=== PATIENT | male | born 1970 | race American Indian/Alaskan Native ===

== ENCOUNTER 2020-09-27 08:45 | Inpatient (IN) | payer SELFPAY ==
[2020-09-27] MEDS ORDERED: ONDANSETRON 4 MG/2 ML INJ IV SCH ×2 (09:00)
[2020-09-27] MEDS ORDERED: MORPHINE 4 MG/1 ML INJ IV SCH (09:30)
[2020-09-27] MEDS ORDERED: ASPIRIN 81 MG TAB CHEW PO SCH (09:30)
[2020-09-27] MEDS ORDERED: MORPHINE 4 MG/1 ML INJ ONE (09:42)
--- NOTE | 2020-09-27 09:48 | Emergency Department Report ---
ED Chest Pain HPI - General Chief Complaint: Chest Pain Stated Complaint: CP Time Seen by Provider: 09/27/20 09:36 Source: patient Mode of arrival: Ambulatory Limitations: No Limitations - History of Present Illness Initial Comments: Patient is 50 years old male with history of hypertension, noncompliant with his medication. Patient brought to the emergency room via EMS from home for evaluation of a sudden onset of left sided chest pain, heaviness in nature with no radiation. Patient rated his pain as 10 out of 10. Patient found to have a blood pressure of 222/131. Patient given nitroglycerin by EMS with improvement in his blood pressure to 193/123. Patient denied any shortness of breath, cough or fever. MD Complaint: chest pain -: Sudden, This morning Onset: during rest Pain Location: substernal Pain Radiation: none Severity: severe Severity scale (0 -10): 10 Quality: heaviness, pressure Consistency: constant - Related Data Allergies Allergy/AdvReac Type Severity Reaction Status Date / Time No Known Allergies Allergy Unverified 09/27/20 10:00 Heart Score - HEART Score History: Moderately suspicious EKG: Non-specific Age: 45-65 Risk factors: 1-2 risk factors Troponin: > 3x normal limit HEART Score: 6 - EKG Read Time Time EKG Completed: 09:39 EKG Read Time: 09:39 - Critical Actions Critical Actions: 4-6 pts:12-16.6% risk of adverse cardiac event. Should be adm itted ED Review of Systems ROS: Stated complaint: CP Other details as noted in HPI Comment: All other systems reviewed and negative Constitutional: denies: chills, fever Respiratory: denies: cough, shortness of breath, SOB with exertion Cardiovascular: chest pain. denies: palpitations Gastrointestinal: denies: abdominal pain, nausea, vomiting, diarrhea Musculoskeletal: denies: back pain Neurological: denies: headache, weakness, numbness, paresthesias, confusion, abnormal gait Psychiatric: anxiety ED Past Medical Hx - Past Medical History Previous Medical History?: Yes Hx Hypertension: Yes ED Physical Exam - General Limitations: No Limitations General appearance: alert, in distress - Head Head exam: Present: atraumatic, normocephalic, normal inspection - Eye Eye exam: Present: normal appearance, PERRL - ENT ENT exam: Present: normal exam, normal orophraynx, mucous membranes moist - Neck Neck exam: Present: normal inspection, full ROM. Absent: tenderness, meningismus - Respiratory Respiratory exam: Present: normal lung sounds bilaterally - Cardiovascular Cardiovascular Exam: Present: regular rate, normal rhythm, normal heart sounds - GI/Abdominal GI/Abdominal exam: Present: soft, normal bowel sounds. Absent: distended, tenderness, guarding, rebound, rigid, mass, bruit, pulsatile mass - Extremities Exam Extremities exam: Present: normal inspection, full ROM, normal capillary refill. Absent: tenderness, pedal edema, joint swelling, calf tenderness - Back Exam Back exam: Present: normal inspection, full ROM. Absent: CVA tenderness (R), CVA tenderness (L) - Neurological Exam Neurological exam: Present: alert, oriented X3, CN II-XII intact, normal gait, reflexes normal. Absent: motor sensory deficit - Psychiatric Psychiatric exam: Present: normal mood, anxious. Absent: suicidal ideation - Skin Skin exam: Present: warm, intact, normal color ED Course Vital Signs 09/27/20 09/27/20 09:00 10:01 Pulse Rate 98 H 92 H Respiratory 22 18 Rate Blood Pressure 164/100 O2 Sat by Pulse 97 98 Oximetry - Consultations Consultation #1: 09/27/20 13:56 I discussed the patient with LEANDRA Cramer with [facility]. He stated that he is coming down to evaluate the patient. ED Medical Decision Making - Lab Data Result diagrams: 09/27/20 09:42 09/27/20 09:42 - EKG Data -: EKG Interpreted by [place] EKG shows normal: sinus rhythm Rate: normal - EKG Data Interpretation: no acute changes - Radiology Data Radiology results: report reviewed - Medical Decision Making Patient is 50 years old male with history of hypertension, noncompliant with his medication. Patient brought to the emergency room via EMS from home for evaluat ion of a sudden onset of left sided chest pain, heaviness in nature with no radiation. Patient rated his pain as 10 out of 10. Patient found to have a blood pressure of 222/131. Patient given nitroglycerin by EMS with improvement in his blood pressure to 193/123. Patient denied any shortness of breath, cough or fever. Patient received morphine, Ativan for pain and labetalol for his blood pressure. This is before the cocaine labs resulted. Given the significantly elevated blood pressure with the chest pain I proceeded with ruling out aortic dissection. CTA chest and CTA abdomen and pelvis came back negative for dissection or any other acute abnormalities. Patient labs reviewed and showed elevated troponin on the first draw and increased to 0.1 on the second draw. Patient given aspirin also. I discussed the patient with Dr. Kedar Cramer PA. He came and evaluated the patient in the ER and recommended patient to be admitted to the hospital for further management. I discussed the patient with Dr. Hightower, he agreed to admit the patient to medical service for further management. Critical Care Time: Yes Critical care time in (mins) excluding proc time.: 30 Critical care attestation.: If time is entered above; I have spent that time in minutes in the direct care of this critically ill patient, excluding procedure time. ED Disposition Clinical Impression: Acute chest pain, Non-STEMI (non-ST elevated myocardial infarction), Hypertensive emergency Disposition: 09 ADMITTED INPATIENT Is pt being admited?: Yes Condition: Stable Instructions: Chest Pain (ED), Hypertension (ED) Referrals: PRIMARY CARE, [Primary Care Provider] - 3-5 Days
[2020-09-27] MEDS ORDERED: SODIUM CHLORIDE 0.9% 1000 ML 1,000 ML IV ONE (10:00)
[2020-09-27 10:14] LABS: Basophils % (Auto) 0.5 % (0.0-1.8); Hematocrit 45.4 % (35.5-45.6); Hemoglobin 15.6 gm/dl (11.8-15.2); Lymphocytes # (Auto) 0.8 K/mm3 (1.2-5.4); Lymphocytes % (Auto) 8.2 % (13.4-35.0); Mean Corpuscular HGB Conc 34 % (32-34); Mean Corpuscular Volume 90 fl (84-94); Monocytes # (Auto) 0.3 K/mm3 (0.0-0.8); Monocytes % (Auto) 3.4 % (0.0-7.3); Platelet Count 174 K/mm3 (140-440); Red Blood Count 5.05 M/mm3 (3.65-5.03)
--- NOTE | 2020-09-27 10:21 | XRay Report ---
CHEST 1 VIEW 09/27/2020 10:01 AM INDICATION / CLINICAL INFORMATION: Chest Pain. COMPARISON: None available. FINDINGS: SUPPORT DEVICES: None. HEART / MEDIASTINUM: No significant abnormality. LUNGS / PLEURA: No significant pulmonary or pleural abnormality. No pneumothorax. ADDITIONAL FINDINGS: No significant additional findings. IMPRESSION: 1. No acute findings. Signer Name: Michael Dash MD Signed: 09/27/2020 10:17 AM Workstation Name: [id number]
[2020-09-27 10:26] LABS: BUN/Creatinine Ratio 13; Blood Urea Nitrogen 10 mg/dL (9-20); Calcium 9.1 mg/dL (8.4-10.2); Hemolysis Index 16
[2020-09-27 10:28] LABS: Alanine Aminotransferase 16 units/L (7-56); Albumin 4.7 g/dL (3.9-5)
[2020-09-27 10:36] LABS: Bilirubin,Direct < 0.2 mg/dL (0-0.2)
[2020-09-27 11:29] LABS: Amphetamine Screen,Urine PRESUMPTIVE NEGATIVE; Benzodiazepines Screen,Urine PRESUMPTIVE NEGATIVE; Cannabinoid Screen,Urine PRESUMPTIVE POSITIVE; Cocaine Screen,Urine PRESUMPTIVE POSITIVE; Methadone Screen,Urine PRESUMPTIVE NEGATIVE; Opiate Screen,Urine PRESUMPTIVE NEGATIVE
[2020-09-27 11:33] LABS: Bilirubin,Urine NEG (Negative); Blood,Urine MOD (Negative); Color,Urine Straw (Yellow); Mucus,Urine FEW /HPF; Urobilinogen,Urine < 2.0 mg/dL (<2.0)
[2020-09-27 12:08] LABS: INR 0.95 (0.87-1.13)
[2020-09-27 12:11] LABS: Partial Thromboplastin Time 21.2 Sec. (24.2-36.6)
[2020-09-27] MEDS ORDERED: LORazepam 2 MG/ML VIAL IV ONE ×3 (12:36→13:15)
--- NOTE | 2020-09-27 15:02 | Cat Scan Report ---
CTA CHEST WITH CONTRAST INDICATION : Acute chest pain, elevated blood pressure, OMNI 350 100 ML. TECHNIQUE: Axial imaging performed through the chest, with contrast bolus timing set to maximize opa cification of the pulmonary arteries. Sagittal and coronal reformatted images. 3-plane MIP reformatte d images were obtained. All CT scans at this location are performed using CT dose reduction for ALAR A by means of automated exposure control. 100 mL of intravenous contrast administered. COMPARISON: FINDINGS: Bolus: Contrast bolus timing is adequate. PTE: No filling defect is present to suggest PTE. Aorta: No significant abnormality. Mediastinum: Heart and great vessels appear normal. No pathologic mediastinal adenopathy. Lungs: Lungs are clear. Bones: Degenerative changes in the spine with nothing acute. IMPRESSION: Negative for PTE. Clear lungs. CTA ABDOMEN AND PELVIS WITH IV CONTRAST INDICATION / CLINICAL INFORMATION: Acute chest pain, elevated blood pressure, OMNI 350 100 ML. TECHNIQUE: Axial CT images were obtained through the abdomen and pelvis before and after injection of 100 cc Omn ipaque 350 IV contrast. 3 plane MIP / 3D reconstructions were produced. All CT scans at this location are performed using CT dose reduction for ALARA by means of automated exposure control. COMPARISON: None available. FINDINGS: Aorta: No significant abnormality. Renal arteries: No significant abnormality. Celiac artery: No significant abnormality. Superior Mesenteric Artery: No significant abnormality. Inferior mesenteric artery: No significant abnormality. Right Iliac Arteries: No significant abnormality.. Left Iliac Arteries: No significant abnormality.. Additional Findings: None. Skeletal Structures: No significant abnormality. IMPRESSION: No significant abnormality. Signer Name: Stan Mac Jr, MD Signed: 09/27/2020 2:57 PM Workstation Name: [id number]
[2020-09-27] MEDS ORDERED: NITROGLYCERIN 0.4 MG TAB SUBL SL PRN (16:00)
[2020-09-27 16:17] LABS: HDL Cholesterol 59 mg/dL (40-59); LDL Cholesterol,Direct 147 mg/dL (50-130)
--- NOTE | 2020-09-27 16:36 | History and Physical Report ---
History of Present Illness Chief complaint: My chest hurts History of present illness: 50 YO Male with HTN, Medication Noncompliance, Cocaine Dependence, Obesity Hypoventilation Syndrome presents to ED for evaluation. Patient reports "I have pain in my chest". Patient states that he has experienced a sudden onset of chest pain today. Patient states that pain is 10/10, constant, crushing in nature, localized to the left chest, nonradiating, relieved with nitro, worsened with exertion, relieved with rest. EMS was notified and upon arrival the patient was found to be in distress and subsequent transported to [facility] for further care and evaluation of the aforementioned symptoms. The patient was seen and evaluated in the emergency department. All lab and imaging studies reviewed. Patient found to have angina at rest, hypertensive emergency, as well as Type II NSTEMI. Cardiology team consulted. Patient denies fever, chills, palpitations, productive cough, skin rash, recent ill contact, or known exposure to COVID-19. No prior admission for review. No medication listed at time of admission reconciliation. Past History Past Medical History: hypertension, other (See HPI) Past Surgical History: No surgical history, Other (See HPI) Social history: , lives with family. denies: smoking Family history: diabetes, hypertension Medications and Allergies Allergies Allergy/AdvReac Type Severity Reaction Status Date / Time No Known Allergies Allergy Unverified 09/27/20 10:00 Active Meds: Active Medications Amlodipine Besylate (Amlodipine 5 Mg Tab) 10 mg PO DAILY [facility] Aspirin (Aspirin 81 Mg Tab Chew) 81 mg PO DAILY [facility] Heparin Sodium (Porcine) (Heparin 10,000 Units/10 Ml Vial) 4,800 unit 40 unit/kg (4800 unit) IV Q6H PRN PRN Reason: Anti-Xa Assay < 0.1 units/ml Heparin Sodium/Sodium Chloride (Heparin/ 0.45% Nacl-25,000 Unit/500 Ml) 25,000 unit in 500 mls @ 20 mls/hr IV TITRATE ROS[facility]; Protocol Stop: 09/29/20 15:59 Labetalol HCl (Labetalol 20 Mg/4 Ml Inj) 10 mg IV Q2H PRN PRN Reason: Hypertension Nitroglycerin (Nitroglycerin 0.4 Mg Tab Subl) 0.4 mg SL .Q5MIN PRN PRN Reason: Chest Pain Review of Systems Constitutional: no weight loss, no weight gain, no chills Ears, nose, mouth and throat: no ear pain, no tinnitis, no decreased hearing, no nose pain, no nasal congestion, no nasal discharge Cardiovascular: chest pain, high blood pressure, no lightheadedness Respiratory: no cough, no cough with sputum, no excessive sputum Gastrointestinal: no abdominal pain, no nausea, no vomiting, no diarrhea, no constipation Genitourinary Male: no hematuria, no flank pain, no urinary frequency, no urinary hesitancy Rectal: no pain, no incontinence, no bleeding Musculoskeletal: no neck stiffness, no neck pain, no shooting arm pain, no arm numbness/tingling Integumentary: no rash, no pruritis, no redness, no sores, no wounds, no jaundice Neurological: no transient paralysis, no paralysis, no weakness, no parathesias, no numbness, no tingling Psychiatric: no anxiety, no memory loss, no change in sleep habits, no insomnia, no hypersomnia, no disorientation Endocrine: no cold intolerance, no heat intolerance, no polyphagia, no polydipsia, no polyuria, no nocturia, no excessive sweating, no weight change Hematologic/Lymphatic: no easy bruising, no easy bleeding Allergic/Immunologic: no urticaria, no allergic rhinitis Exam - Constitutional Vitals: Temp Pulse Resp BP Pulse Ox 92 H 18 164/100 98 09/27/20 10:01 09/27/20 10:01 09/27/20 09:00 09/27/20 10:01 General appearance: Present: mild distress, obese - EENT Eyes: Present: PERRL ENT: hearing intact, clear oral mucosa - Neck Neck: Present: supple, normal ROM - Respiratory Respiratory effort: normal Respiratory: bilateral: CTA - Cardiovascular Heart Sounds: Present: S1 & S2. Absent: rub, click - Extremities Extremities: pulses symmetrical, No edema Peripheral Pulses: within normal limits - Abdominal General gastrointestinal: Present: soft, non-tender, non-distended, normal bowel sounds Male genitourinary: Present: normal - Integumentary Integumentary: Present: clear, warm, dry - Musculoskeletal Musculoskeletal: gait normal, strength equal bilaterally - Psychiatric Psychiatric: appropriate mood/affect, intact judgment & insight - Neurologic Neurologic: CNII-XII intact, moves all extremities HEART Score - HEART Score EKG: Non-specific Age: 45-65 Risk factors: 1-2 risk factors Troponin: Troponin T 0.102 ng/mL (0.00-0.029) H* D 09/27/20 12:42 Troponin: > 3x normal limit - Critical Actions Critical Actions: 4-6 pts:12-16.6% risk of adverse cardiac event. Should be admitted Results - Labs CBC & Chem 7: 09/27/20 16:18 09/27/20 09:42 Labs: Abnormal lab results 09/27/20 09/27/20 09/27/20 Range/Units 09:42 09:42 09:42 RBC 5.05 H (3.65-5.03) M/mm3 Hgb 15.6 H (11.8-15.2) gm/dl Lymph % (Auto) 8.2 L (13.4-35.0) % Lymph # (Auto) 0.8 L (1.2-5.4) K/mm3 Seg Neutrophils % 87.9 H (40.0-70.0) % Seg Neutrophils # 8.5 H (1.8-7.7) K/mm3 APTT 21.2 L (24.2-36.6) Sec. Potassium 3.0 L (3.6-5.0) mmol/L Glucose 112 H (75-100) mg/dL Troponin T 0.037 H (0.00-0.029) ng/mL Cholesterol 207 H (50-199) mg/dL LDL Cholesterol Direct 147 H (50-130) mg/dL Urine pH (5.0-7.0) 09/27/20 09/27/20 Range/Units 12:42 Unknown RBC (3.65-5.03) M/mm3 Hgb (11.8-15.2) gm/dl Lymph % (Auto) (13.4-35.0) % Lymph # (Auto) (1.2-5.4) K/mm3 Seg Neutrophils % (40.0-70.0) % Seg Neutrophils # (1.8-7.7) K/mm3 APTT (24.2-36.6) Sec. Potassium (3.6-5.0) mmol/L Glucose (75-100) mg/dL Troponin T 0.102 H* D (0.00-0.029) ng/mL Cholesterol (50-199) mg/dL LDL Cholesterol Direct (50-130) mg/dL Urine pH 8.0 H (5.0-7.0) Assessment and Plan - Patient Problems (1) Non-STEMI (non-ST elevated myocardial infarction) Current Visit: Yes Status: Acute Plan to address problem: Serial cardiac enzymes, EKG, cardiology team consulted, further care as per car diology team, echocardiogram in a.m., stress test in a.m. (2) Angina at rest Current Visit: Yes Status: Acute Plan to address problem: Serial cardiac enzymes, EKG, telemetry, supplemental oxygen, morphine, nitro, aspirin, cardiology team consulted. Echocardiogram in a.m., stress test in a.m. (3) Obesity hypoventilation syndrome Current Visit: Yes Status: Acute Plan to address problem: Balanced diet, increase physical activity at discharge, outpatient pulmonary follow-up for sleep study. (4) Cocaine use Current Visit: Yes Status: Acute Plan to address problem: Outpatient drug dependence follow-up, supportive care. Blood pressure control. (5) Hypertensive emergency Current Visit: Yes Status: Acute Plan to address problem: Monitor blood pressure every shift, IV hydralazine every 6 hours as needed for systolic blood pressure greater than equal to 155 mmHg (6) DVT prophylaxis Current Visit: Yes Status: Acute Plan to address problem: SCD to bilateral lower extremities while in bed, patient is ambulatory
[2020-09-27 16:37] LABS: Hematocrit 44.7 % (35.5-45.6); Hemoglobin 15.4 gm/dl (11.8-15.2)
[2020-09-27 16:55] LABS: INR 0.91 (0.87-1.13); Partial Thromboplastin Time 24.8 Sec. (24.2-36.6)
[2020-09-27] MEDS: amLODIPine 5 MG TAB PO SCH (17:20)
[2020-09-27] MEDS: HEPARIN 10,000 UNITS/10 ML VIAL IV PRN (17:21)
[2020-09-27] MEDS: HEPARIN/ 0.45% NACL DRIP 25,000 UNIT/500 ML BAG IV SCH (17:23)
[2020-09-27] MEDS ORDERED: oxyCODONE /ACETAMINOPHEN 5-325MG TAB PO PRN (17:30)
[2020-09-27] MEDS ORDERED: ALBUTEROL 2.5 MG/3 ML NEBU IH PRN (17:30)
[2020-09-27] MEDS ORDERED: ONDANSETRON 4 MG/2 ML INJ IV PRN (17:30)
[2020-09-27] MEDS: HYDROmorphone 1 MG/1 ML INJ IV PRN (17:42)
--- NOTE | 2020-09-27 18:37 | Consultation ---
History of Present Illness Consult date: 09/27/20 Requesting physician: CLIFFORD MCCLOUD Consult reason: chest pain, other (NSTEMI) History of present illness: Patient is a 50 y/o male with pmhx of HTN who came to the ED for chest pain. At time of interview patient was lethargic due to recently receiving Ativan in the ED. The patient reports that last night he was partying, drank alcohol, and did cocaine. He reports that this morning he woke up with a crushing chest pain on the left side of his chest that he rated as 10/10. He reports that he had nausea and vomiting but denies SOB, cough, fever or diaphoresis. Patient was found by EMSto have a BP of 222/131 which dropped to 193/123 after being given nitroglycerin. In the ED patient was found to have troponins 0.03->0.1. Cardiology consulted for NSTEMI. Past History Past Medical History: hypertension Past Surgical History: No surgical history Social history: other (cocaine, marijauna use) Family history: no significant family history Medications and Allergies Allergies Allergy/AdvReac Type Severity Reaction Status Date / Time No Known Allergies Allergy Unverified 09/27/20 10:00 Active Meds: Active Medications Acetaminophen (Acetaminophen 325 Mg Tab) 650 mg PO Q4H PRN PRN Reason: Pain MILD(1-3)/Fever >100.5/CURRAN Albuterol (Albuterol 2.5 Mg/3 Ml Nebu) 2.5 mg IH Q4HRT PRN PRN Reason: Shortness Of Breath Amlodipine Besylate (Amlodipine 5 Mg Tab) 10 mg PO DAILY [facility] Last Admin: 09/27/20 17:20 Dose: 10 mg Documented by: Aspirin (Aspirin 81 Mg Tab Chew) 81 mg PO DAILY [facility] Heparin Sodium (Porcine) (Heparin 10,000 Units/10 Ml Vial) 4,800 unit 40 unit/kg (4800 unit) IV Q6H PRN PRN Reason: Anti-Xa Assay < 0.1 units/ml Last Admin: 09/27/20 17:21 Dose: 4,800 unit Documented by: Hydromorphone HCl (Hydromorphone 1 Mg/1 Ml Inj) 0.5 mg IV Q12H PRN PRN Reason: Pain , Severe (7-10) Last Admin: 09/27/20 17:42 Dose: 0.5 mg Documented by: Heparin Sodium/Sodium Chloride (Heparin/ 0.45% Nacl-25,000 Unit/500 Ml) 25,000 unit in 500 mls @ 20 mls/hr IV TITRATE [facility]; Protocol Stop: 09/29/20 15:59 Last Admin: 09/27/20 17:23 Dose: 1,000 units/hr, 20 mls/hr Documented by: Labetalol HCl (Labetalol 20 Mg/4 Ml Inj) 10 mg IV Q2H PRN PRN Reason: Hypertension Last Admin: 09/27/20 17:21 Dose: 10 mg Documented by: Nitroglycerin (Nitroglycerin 0.4 Mg Tab Subl) 0.4 mg SL .Q5MIN PRN PRN Reason: Chest Pain Ondansetron HCl (Ondansetron 4 Mg/2 Ml Inj) 4 mg IV Q8H PRN PRN Reason: Nausea And Vomiting Oxycodone/Acetaminophen (Oxycodone /Acetaminophen 5-325mg Tab) 1 tab PO Q12H PRN PRN Reason: Pain, Moderate (4-6) Last Admin: 09/27/20 17:42 Dose: 1 tab Documented by: Sodium Chloride (Sodium Chloride 0.9% 10 Ml Flush Syringe) 10 ml IV BID [facility] Sodium Chloride (Sodium Chloride 0.9% 10 Ml Flush Syringe) 10 ml IV PRN PRN PRN Reason: LINE FLUSH Review of Systems Constitutional: no weight loss, no weight gain, no fever, no chills Ears, nose, mouth and throat: no nasal congestion, no nasal discharge, no sinus pressure, no sinus pain Cardiovascular: chest pain, no palpitations, no shortness of breath, no dyspnea on exertion Respiratory: no cough with sputum, no excessive sputum, no shortness of breath, no dyspnea on exertion Gastrointestinal: nausea, vomiting, no abdominal pain, no diarrhea Musculoskeletal: no neck stiffness, no neck pain, no shooting arm pain, no arm numbness/tingling Integumentary: no rash, no pruritis, no redness Neurological: no head injury, no transient paralysis, no paralysis, no weakness Psychiatric: no anxiety, no memory loss Endocrine: no cold intolerance, no heat intolerance Hematologic/Lymphatic: no easy bruising, no easy bleeding Physical Examination Last Vital Signs Temp Pulse 78 09/27/20 17:20 Resp 18 09/27/20 10:01 BP 190/114 09/27/20 17:20 Pulse Ox 98 09/27/20 10:01 General appearance: other (lethargic) HEENT: Positive: PERRL Neck: Positive: trachea midline Cardiac: Positive: Reg Rate and Rhythm Lungs: Positive: clear to auscultation, Normal Breath Sounds Neuro: Positive: Grossly Intact Abdomen: Positive: Soft, Active Bowel Sounds Skin: Negative: Rash, Suspicious Lesions, Ulceration Extremities: Present: upper extr. pulses, lower extr. pulses. Absent: edema Results 09/27/20 16:18 09/27/20 09:42 Cardiac Enzymes 09/27/20 Range/Units 09:42 AST 21 (5-40) units/L Coagulation 09/27/20 09/27/20 Range/Units 09:42 16:18 PT 13.2 12.9 (12.2-14.9) Sec. INR 0.95 0.91 (0.87-1.13) APTT 21.2 L 24.8 (24.2-36.6) Sec. Lipids 09/27/20 Range/Units 09:42 Triglycerides 139 (2-149) mg/dL Cholesterol 207 H (50-199) mg/dL HDL Cholesterol 59 (40-59) mg/dL Cholesterol/HDL Ratio 3.50 % CBC 09/27/20 09/27/20 Range/Units 09:42 16:18 WBC 9.6 (4.5-11.0) K/mm3 RBC 5.05 H (3.65-5.03) M/mm3 Hgb 15.6 H 15.4 H (11.8-15.2) gm/dl Hct 45.4 44.7 (35.5-45.6) % Plt Count 174 173 (140-440) K/mm3 Lymph # (Auto) 0.8 L (1.2-5.4) K/mm3 [place] # (Auto) 0.3 (0.0-0.8) K/mm3 Eos # (Auto) 0.0 (0.0-0.4) K/mm3 Baso # (Auto) 0.0 (0.0-0.1) K/mm3 Comprehensive Metabolic Panel 09/27/20 09/27/20 Range/Units 09:42 09:42 Sodium 140 (137-145) mmol/L Potassium 3.0 L (3.6-5.0) mmol/L Chloride 102.7 (98-107) mmol/L Carbon Dioxide 22 (22-30) mmol/L BUN 10 (9-20) mg/dL Creatinine 0.8 (0.8-1.3) mg/dL Glucose 112 H (75-100) mg/dL Calcium 9.1 (8.4-10.2) mg/dL Direct Bilirubin < 0.2 (0-0.2) mg/dL Indirect Bilirubin 0.3 mg/dL AST 21 (5-40) units/L ALT 16 (7-56) units/L Alkaline Phosphatase 70 (35-129) units/L Total Protein 7.8 (6.3-8.2) g/dL Albumin 4.7 (3.9-5) g/dL - Imaging and Cardiology Echo: pending EKG: report reviewed, image reviewed EKG interpretations - Telemetry EKG Rhythm: Sinus Rhythm - EKG Sinus rhythms and dysrhythmias: sinus rhythm Assessment and Plan NSTEMI HTN * EKG showed siuns rhythm 79 with no acute ischemic changes. Troponins trending up 0.03->0.1 * Initiated Heparin gtt, asa * Optimize hypertensive regimen: intiate amlodipine 10mg PO QD, labetolol 10mg IV prn * Echo pending * Lexiscan Stress AM. NPO after midnight Echo pending. Lexiscan stress AM. NPO after midnight Patient seen in conjunction with Dr. Castillo who agrees with this plan of care. Will continue to follow - Patient Problems (1) Cocaine use Current Visit: Yes Status: Acute (2) Acute chest pain Current Visit: Yes Status: Acute (3) Hypertensive emergency Current Visit: Yes Status: Acute (4) Non-STEMI (non-ST elevated myocardial infarction) Current Visit: Yes Status: Acute
[2020-09-27] MEDS: hydrALAZINE 20 MG/1 ML INJ IV PRN (22:03)
[2020-09-28] MEDS: ACETAMINOPHEN 325 MG TAB PO PRN (01:18)
[2020-09-28] MEDS: hydrALAZINE 20 MG/1 ML INJ IV PRN (04:17)
[2020-09-28] MEDS ORDERED: MORPHINE 2 MG/1 ML INJ ONE (04:38)
[2020-09-28] MEDS: MORPHINE 4 MG/1 ML INJ IV PRN ×2 (04:43→22:11)
[2020-09-28 05:43] LABS: Basophils # (Auto) 0.1 K/mm3 (0.0-0.1); Basophils % (Auto) 1.2 % (0.0-1.8); Eosinophils % (Auto) 0.2 % (0.0-4.3); Hematocrit 47.6 % (35.5-45.6); Lymphocytes # (Auto) 2.5 K/mm3 (1.2-5.4); Lymphocytes % (Auto) 24.3 % (13.4-35.0); Mean Corpuscular HGB Conc 34 % (32-34); Mean Corpuscular Volume 91 fl (84-94); Monocytes # (Auto) 0.7 K/mm3 (0.0-0.8); Monocytes % (Auto) 7.3 % (0.0-7.3); Platelet Count 169 K/mm3 (140-440); Red Blood Count 5.23 M/mm3 (3.65-5.03)
[2020-09-28 05:56] LABS: Alanine Aminotransferase 29 units/L (7-56); Albumin 4.8 g/dL (3.9-5); Blood Urea Nitrogen 10 mg/dL (9-20); Calcium 9.6 mg/dL (8.4-10.2); Hemolysis Index 11
[2020-09-28 05:57] LABS: BUN/Creatinine Ratio 14
[2020-09-28] MEDS: HYDROmorphone 1 MG/1 ML INJ IV PRN (09:41)
[2020-09-28] MEDS: HEPARIN 10,000 UNITS/10 ML VIAL IV PRN (10:01)
[2020-09-28] MEDS ORDERED: REGADENOSON 0.4 MG/5 ML INJ IV ONE ×2 (10:13)
--- NOTE | 2020-09-28 10:31 | Progress Note ---
Assessment and Plan Anterior T wave inversions noted on ECG this AM. Continue heparin gtt. Plan for LHC in AM. NPO after midnight. Repeat UDS this evening. Continue bASA, Plavix, and statin. Add Coreg. Continue CCB. Add Imdur as well. Pt seen in conjunction with Dr. Castillo, who agrees with the assessment and plan of care. - Patient Problems (1) Chest pain Current Visit: Yes Status: Acute (2) Non-STEMI (non-ST elevated myocardial infarction) Current Visit: Yes Status: Acute (3) Cocaine use Current Visit: Yes Status: Acute (4) Hypertensive emergency Current Visit: Yes Status: Acute Subjective Date of service: 09/28/20 Principal diagnosis: NSTEMI Interval history: Seen in stress lab this AM. No new complaints. Chest pain has improved. Objective Last Vital Signs Temp Pulse 78 09/28/20 16:31 Resp 18 09/28/20 16:31 BP 130/64 09/28/20 16:31 Pulse Ox 97 09/28/20 16:31 - Physical Examination General: No Apparent Distress HEENT: Positive: EOMI, Normocephaly Neck: Positive: neck supple, trachea midline. Negative: JVD/HJR Cardiac: Positive: Reg Rate and Rhythm, S1/S2 Lungs: Positive: clear to auscultation Neuro: Positive: Grossly Intact Abdomen: Positive: Soft. Negative: Tender Skin: Negative: Rash, Suspicious Lesions Musculoskeletal: No Pain Extremities: Present: lower extr. pulses. Absent: edema - Labs and Meds Cardiac Enzymes 09/27/20 09/28/20 Range/Units 09:42 05:03 AST 21 197 H (5-40) units/L Coagulation 09/27/20 09/27/20 Range/Units 09:42 16:18 PT 13.2 12.9 (12.2-14.9) Sec. INR 0.95 0.91 (0.87-1.13) APTT 21.2 L 24.8 (24.2-36.6) Sec. Lipids 09/27/20 Range/Units 09:42 Triglycerides 139 (2-149) mg/dL Cholesterol 207 H (50-199) mg/dL HDL Cholesterol 59 (40-59) mg/dL Cholesterol/HDL Ratio 3.50 % CBC 09/27/20 09/28/20 Range/Units 16:18 05:03 WBC 10.2 (4.5-11.0) K/mm3 RBC 5.23 H (3.65-5.03) M/mm3 Hgb 15.4 H 16.0 H (11.8-15.2) gm/dl Hct 44.7 47.6 H (35.5-45.6) % Plt Count 173 169 (140-440) K/mm3 Lymph # (Auto) 2.5 (1.2-5.4) K/mm3 [place] # (Auto) 0.7 (0.0-0.8) K/mm3 Eos # (Auto) 0.0 (0.0-0.4) K/mm3 Baso # (Auto) 0.1 (0.0-0.1) K/mm3 Comprehensive Metabolic Panel 09/27/20 09/28/20 Range/Units 09:42 05:03 Sodium 140 (137-145) mmol/L Potassium 3.7 D (3.6-5.0) mmol/L Chloride 100.8 (98-107) mmol/L Carbon Dioxide 24 (22-30) mmol/L BUN 10 (9-20) mg/dL Creatinine 0.7 L (0.8-1.3) mg/dL Glucose 83 (75-100) mg/dL Calcium 9.6 (8.4-10.2) mg/dL Direct Bilirubin < 0.2 (0-0.2) mg/dL Indirect Bilirubin 0.3 mg/dL AST 21 197 H (5-40) units/L ALT 16 29 (7-56) units/L Alkaline Phosphatase 70 69 (35-129) units/L Total Protein 7.8 7.2 (6.3-8.2) g/dL Albumin 4.7 4.8 (3.9-5) g/dL - Imaging and Cardiology EKG: report reviewed, image reviewed Pharmacologic stress test: pending Echo: report reviewed (09/21/2020 - EF 40-45%, severe hypokinesis of septal wall & anterior wall, mild LVH, mild diastolic dysfxn) Cardiac cath: pending - Telemetry EKG Rhythm: Sinus Rhythm - EKG Sinus rhythms and dysrhythmias: sinus rhythm Repolarization changes or abnormalities: ST suggestive of injury
[2020-09-28] MEDS ORDERED: SODIUM CHLORIDE 0.9% 500 ML 500 ML IV SCH (11:00)
[2020-09-28] MEDS: amLODIPine 5 MG TAB PO SCH (11:34)
[2020-09-28] MEDS: ASPIRIN 81 MG TAB CHEW PO SCH (11:35)
[2020-09-28] MEDS: carvediloL 6.25 MG TAB PO SCH ×2 (13:01→23:08)
--- NOTE | 2020-09-28 15:19 | Progress Note ---
Assessment and Plan Patient is a 50 y/o male with pmhx of HTN who came to the ED for chest pain. Per patient night prior to that he was partying, drank alcohol, and did cocaine. Patient was found by EMSto have a BP of 222/131 which dropped to 193/123 after being given nitroglycerin. In the ED patient was found to have troponins 0.03- >0.1. Cardiology consulted for NSTEMI. Assessment and plan: --Non-STEMI (non-ST elevated myocardial infarction) Serial cardiac enzymes, EKG, cardiology team consulted, Status post stress test today, plan for cardiac cath tomorrow Continue heparin drip, aspirin and statin -- Angina at rest Continue heparin drip, aspirin and statin Cardiology consulted and plan for heparin drip tomorrow --Cocaine abuse Outpatient drug dependence follow-up, supportive care. Blood pressure control. --Alcohol abuse, monitor for withdrawal -- Hypertensive emergency Monitor blood pressure every shift, IV hydralazine every 6 hours as needed for systolic blood pressure greater than equal to 155 mmHg -- DVT prophylaxis SCD to bilateral lower extremities while in bed, patient on heparin drip Daily clinical course: 09/28/20: Patient noted to have anterior T wave inversions now noted on ECG. Continue heparin gtt. by cardiology plan for LHC in AM. NPO after midnight. Continue bASA, Plavix, and statin. Added Coreg and Imdur. Continue CCB. Continue to monitor clinically. Subjective Date of service: 09/28/20 Principal diagnosis: NSTEMI Interval history: Patient seen and examined. Medical records and medication list reviewed. No acute event overnight noted by the RN. Patient had stress test today. Patient is tolerating diet. Discussed plan of care at bedside with patient. Objective - Exam Narrative Exam: GENERAL: well-developed and well-nourished AAM lying on bed appeared to be in no discomfort. HEENT: Normocephalic. Atraumatic. No conjunctival congestion or icterus. Patient has moist mucous membranes. NECK: Supple. Trachea midline. CHEST/LUNGS: Clear to auscultated bilaterally, breathing nonlabored. No wheezes crackles or rhonchi. HEART/CARDIOVASCULAR: Regular in rate and rhythm. S1 and S2 positive. ABDOMEN: Abdomen is soft, nontender. Patient has normal bowel sounds. SKIN: There is no rash. Warm and dry. NEURO: No focal motor deficit. Follows command. MUSCULOSKELETAL: No joint effusion or tenderness. EXTRIMITY: No edema, no cyanosis or clubbing. Cardiac Cath Site PSYCH: Cooperative. - Constitutional Vitals: Vital Signs - 12hr 09/28/20 09/28/20 09/28/20 03:31 04:01 04:17 Pulse Rate 82 88 91 H Respiratory 15 21 Rate Blood Pressure 180/115 180/115 181/98 O2 Sat by Pulse 95 96 Oximetry 09/28/20 09/28/20 09/28/20 04:30 05:00 05:30 Pulse Rate 96 H 92 H 90 Respiratory 13 11 L 18 Rate Blood Pressure 164/105 164/105 164/105 O2 Sat by Pulse 96 98 98 Oximetry 09/28/20 09/28/20 09/28/20 06:00 06:30 07:00 Pulse Rate 88 83 90 Respiratory 15 21 15 Rate Blood Pressure 164/105 138/84 138/84 O2 Sat by Pulse 97 97 96 Oximetry 09/28/20 09/28/20 09/28/20 07:30 08:00 08:30 Pulse Rate 86 90 82 Respiratory 17 16 20 Rate Blood Pressure 178/116 178/116 169/95 O2 Sat by Pulse 98 98 98 Oximetry 09/28/20 09/28/20 09/28/20 09:00 10:14 10:34 Pulse Rate 86 Respiratory 16 Rate Blood Pressure 169/95 174/101 164/101 O2 Sat by Pulse 97 Oximetry 09/28/20 09/28/20 09/28/20 10:35 10:36 10:37 Pulse Rate Respiratory Rate Blood Pressure 141/91 154/91 152/97 O2 Sat by Pulse Oximetry 09/28/20 09/28/20 09/28/20 10:38 11:18 11:30 Pulse Rate 69 Respiratory 18 Rate Blood Pressure 160/98 169/95 146/87 O2 Sat by Pulse 97 95 Oximetry 09/28/20 09/28/20 12:10 13:01 Pulse Rate 78 75 Respiratory 23 Rate Blood Pressure 142/90 O2 Sat by Pulse 96 Oximetry - Labs CBC & Chem 7: 09/29/20 04:08 09/30/20 04:16 Labs: Abnormal lab results 09/27/20 09/27/20 09/27/20 Range/Units 09:42 16:18 16:18 RBC (3.65-5.03) M/mm3 Hgb 15.4 H (11.8-15.2) gm/dl Hct (35.5-45.6) % Heparin Anti-Xa Level (0.3-0.7) U.I./ml Creatinine (0.8-1.3) mg/dL AST (5-40) units/L Troponin T 0.272 H* D (0.00-0.029) ng/mL Cholesterol 207 H (50-199) mg/dL LDL Cholesterol Direct 147 H (50-130) mg/dL 09/27/20 09/28/20 09/28/20 Range/Units 23:38 05:03 05:03 RBC 5.23 H (3.65-5.03) M/mm3 Hgb 16.0 H (11.8-15.2) gm/dl Hct 47.6 H (35.5-45.6) % Heparin Anti-Xa Level 0.10 L (0.3-0.7) U.I./ml Creatinine 0.7 L (0.8-1.3) mg/dL AST 197 H (5-40) units/L Troponin T (0.00-0.029) ng/mL Cholesterol (50-199) mg/dL LDL Cholesterol Direct (50-130) mg/dL 09/28/20 Range/Units 09:14 RBC (3.65-5.03) M/mm3 Hgb (11.8-15.2) gm/dl Hct (35.5-45.6) % Heparin Anti-Xa Level < 0.10 L (0.3-0.7) U.I./ml Creatinine (0.8-1.3) mg/dL AST (5-40) units/L Troponin T (0.00-0.029) ng/mL Cholesterol (50-199) mg/dL LDL Cholesterol Direct (50-130) mg/dL HEART Score - HEART Score EKG: Non-specific Age: 45-65 Risk factors: 1-2 risk factors Troponin: Troponin T 0.272 ng/mL (0.00-0.029) H* D 09/27/20 16:18 Troponin: > 3x normal limit - Critical Actions Critical Actions: 4-6 pts:12-16.6% risk of adverse cardiac event. Should be admitted
[2020-09-28] MEDS: CLOPIDOGREL 75 MG TAB PO SCH (18:53)
[2020-09-29] MEDS: HEPARIN/ 0.45% NACL DRIP 25,000 UNIT/500 ML BAG IV SCH (01:31)
[2020-09-29 05:39] LABS: Basophils # (Auto) 0.1 K/mm3 (0.0-0.1); Basophils % (Auto) 1.1 % (0.0-1.8); Eosinophils % (Auto) 0.3 % (0.0-4.3); Hematocrit 43.7 % (35.5-45.6); Hemoglobin 14.7 gm/dl (11.8-15.2); Lymphocytes # (Auto) 2.7 K/mm3 (1.2-5.4); Lymphocytes % (Auto) 32.2 % (13.4-35.0); Mean Corpuscular HGB Conc 34 % (32-34); Mean Corpuscular Volume 91 fl (84-94); Monocytes # (Auto) 0.8 K/mm3 (0.0-0.8); Monocytes % (Auto) 9.4 % (0.0-7.3); Platelet Count 145 K/mm3 (140-440); Red Blood Count 4.82 M/mm3 (3.65-5.03); Red Cell Distribution Width 13.6 % (13.2-15.2)
[2020-09-29 05:47] LABS: INR 0.92 (0.87-1.13)
[2020-09-29 05:56] LABS: BUN/Creatinine Ratio 16; Blood Urea Nitrogen 16 mg/dL (9-20); Calcium 9.1 mg/dL (8.4-10.2); Hemolysis Index 15
[2020-09-29] MEDS: CLOPIDOGREL 75 MG TAB PO SCH (08:50)
[2020-09-29] MEDS: ASPIRIN 81 MG TAB CHEW PO SCH (08:50)
[2020-09-29] MEDS ORDERED: SODIUM CHLORIDE 0.9% 500 ML 500 ML IV SCH (09:00)
[2020-09-29] MEDS ORDERED: MIDAZOLAM 2 MG/2 ML INJ ONE (09:33)
[2020-09-29] MEDS ORDERED: fentaNYL 100 MCG/2 ML INJ ONE (09:34)
[2020-09-29] MEDS ORDERED: HEPARIN/NS 5000 UNIT/500ML 1,000 ML IR ONE (09:34)
[2020-09-29] MEDS ORDERED: VERAPAMIL 5 MG/2 ML INJ ONE (09:34)
[2020-09-29] MEDS ORDERED: HEPARIN 10,000 UNITS/10 ML VIAL ONE ×2 (09:34→10:29)
[2020-09-29] MEDS ORDERED: LIDOCAINE (2%) 20 MG/1 ML VIAL 20 ML MDV INFILTRATI ONE (09:35)
[2020-09-29] MEDS ORDERED: NITROGLYCERIN SYRINGE 0 ML ONE (09:35)
--- NOTE | 2020-09-29 09:47 | Electrocardiograph Report ---
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
[2020-09-29] MEDS ORDERED: POTASSIUM CHLORIDE ER 20 MEQ TAB PO ONE (10:00)
[2020-09-29] MEDS ORDERED: NITROGLYCERIN SYRINGE 3 ML ONE (10:29)
[2020-09-29] MEDS ORDERED: HEPARIN/NS 5000 UNIT/500ML 500 ML IR ONE (10:31)
[2020-09-29] MEDS ORDERED: SODIUM CHLORIDE 0.9% 500 ML 500 ML ONE (10:37)
--- NOTE | 2020-09-29 10:44 | Electrocardiograph Report ---
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
[2020-09-29] MEDS ORDERED: NITROGLYCERIN 600 MCG/3 ML SYRINGE INTRA-CORO ONE (11:15)
[2020-09-29] MEDS ORDERED: CLOPIDOGREL 300 MG TAB ONE (11:19)
[2020-09-29] MEDS ORDERED: traMADol 50 MG TAB PO PRN (12:03)
[2020-09-29] MEDS ORDERED: HYDROcodone/ACETAMINOPHEN 5-325 MG TAB PO PRN (12:03)
--- NOTE | 2020-09-29 14:42 | Cardiac Catherization Report ---
DATE OF SERVICE: 09/29/2020 CARDIAC CATHETERIZATION AND CORONARY INTERVENTION REPORT INDICATIONS: A 50-year-old -[place] gentleman with history of hypertension, was evaluated in the Emergency Room for chest pain and his blood pressure was markedly elevated up to 222/131 and subsequently managed medically for control of blood pressure. His troponins raised from 0.03 to 0.1. Hence, the consultation. Subsequently, the patient was noted to have EKG changes suggestive of non-STEMI involving the anterior wall with T-wave changes in the anterior leads. Because of non-STEMI and unstable angina, the patient is scheduled for cardiac catheterization for definitive diagnosis and treatment. It is to be noted the patient uses cocaine. DESCRIPTION OF PROCEDURE: The patient was brought to the catheterization laboratory in a fasting condition. The patient was evaluated for moderate sedation and was felt to be candidate for moderate sedation. Received IV Versed and fentanyl. Subsequently, the patient was prepared in standard fashion. Sterile drapes were applied. Local anesthesia was given in the right wrist area and subsequently right radial artery access was obtained and 5-Salvadorean slender sheath was introduced. Received 5 mg of intraarterial verapamil and 3000 units of intravenous heparin. 5 [place] multipurpose catheter was used to obtain the angiograms of the left coronary artery, right coronary artery and left ventriculogram done in LISA projection. The patient was noted to have following findings: 1. Left ventriculogram done in LISA projection using hand injection showed apical akinesis. Overall, ejection fraction was felt to be 40-45% with end diastolic pressure of 14. Mitral regurgitation could not be evaluated because of limited amount of dye injected. 2. Right coronary artery, dominant vessel, shows mild disease proximally and there is distal disease approaching 50% in the posterolateral branch segment lesion and very distally small caliber LV branch shows 50-60% diffuse disease. 3. Left coronary artery: Left main arises normally and left main is very short, immediately dividing into LAD and circumflex branches. Circumflex artery and its branches without significant disease. There is a large proximal diagonal branch noted, which is without significant disease. Subsequently, the patient has very severe thrombotic lesion approaching 98-99% with JEANNETTE 2 flow. Distal vessel showed only mild disease. Collaterals were noted to the LAD from the conus branch to the proximal LAD. FINAL IMPRESSION: Mild left ventricular dysfunction with apical akinesis with moderate disease in the RCA and circumflex artery without significant disease, but very thrombotic lesion in the mid left anterior descending with large distal left anterior descending, which showed only mild disease. Considering this, it was felt that the patient would benefit from intervention of the same lesion. Then, it was converted to percutaneous coronary intervention procedure. PCI of the mid LAD: The patient has indwelling 5 [place] [address] sheath in place. The patient received 100 units of heparin per kg and subsequently JL 4.0 guiding catheter was used to engage the left coronary artery. Initially, EBU 3.5 and 3.75 were used without success. Advancing the 0.014 inch [place] XT guidewire into the distal LAD without much difficulty. Thrombectomy was performed x2 using a 6-[place]orean [place] catheter. Moderate amount of organized dark thrombus was obtained. Lesion improved slightly. However, significant thrombus is still present. Lesion was dilated with 3.5 x 20 mm balloon with good result. Subsequently, IVUS, intravascular ultrasound was set up and intravascular ultrasound was performed in the standard fashion. Size of the mid LAD was found to be 4.0 mm. Hence 4.0 x 24 mm Promus drug-eluting stent was inflated up to 14 atmospheres with very good result. There is distal spasm which resolved after giving intracoronary nitroglycerin. The patient tolerated the procedure well. JEANNETTE 2 flow was converted to JEANNETTE 3 flow. No distal embolization noted. As mentioned above, large amount of thrombus was noted. Final intravascular ultrasound showed well apposition of the stent to the vessel wall with no evidence of dissection or thrombus. Final angiogram showed no complications of perforation, distal embolization or dissection. The patient tolerated the procedure well without any significant hemodynamic changes. The patient's blood pressure has been very stable and rhythm has been stable. The patient's moderate sedation started at 10:11 a.m. and ended at 11:19 a.m. At the end of the procedure, the patient is communicating normally, oriented x3 and breathing normally with no focal deficits. Findings were explained to the patient. FINAL IMPRESSION: Uncomplicated, successful drug-eluting stent placement of the mid LAD with a catheter thrombectomy and IVUS guidance. No complications noted. The patient was given 600 mg of Plavix. The patient will be on aspirin and Plavix. He was recommended Plavix for 1 year without interruption. He understands. The patient will be monitored overnight. No complications were noted. TID: [id number] RECEIPT: [id number] JAYCOB/PETER/CAITLYN MAYO
[2020-09-29] MEDS: amLODIPine 5 MG TAB PO SCH (15:03)
[2020-09-29] MEDS: carvediloL 6.25 MG TAB PO SCH (15:04)
[2020-09-29] MEDS: ACETAMINOPHEN 325 MG TAB PO PRN (15:05)
--- NOTE | 2020-09-29 17:26 | Progress Note ---
Assessment and Plan Patient is a 50 y/o male with pmhx of HTN who came to the ED for chest pain. Per patient night prior to that he was partying, drank alcohol, and did cocaine. Patient was found by EMSto have a BP of 222/131 which dropped to 193/123 after being given nitroglycerin. In the ED patient was found to have troponins 0.03- >0.1. Cardiology consulted for NSTEMI. Assessment and plan: --Non-STEMI (non-ST elevated myocardial infarction) Serial cardiac enzymes, EKG, cardiology team consulted, Status post cardiac cath today with PCI s/p heparin drip, cont aspirin and statin 2d echo showed EF 40-45% -- Angina at rest s/p heparin drip, cont aspirin and statin Status post PCI today, cardiology following --Cocaine abuse Outpatient drug dependence follow-up, supportive care. Blood pressure control. --Alcohol abuse, monitor for withdrawal -- Hypertensive emergency Monitor blood pressure every shift, IV hydralazine every 6 hours as needed for systolic blood pressure greater than equal to 155 mmHg -- DVT prophylaxis SCD to bilateral lower extremities while in bed, patient on heparin drip Daily clinical course: 09/28/20: Patient noted to have anterior T wave inversions now noted on ECG. Continue heparin gtt. by cardiology plan for LHC in AM. NPO after midnight. Continue bASA, Plavix, and statin. Added Coreg and Imdur. Continue CCB. Continue to monitor clinically. 09/29/20: Status post left heart catheterization with PCI to mid LAD, continue to monitor. Discharge planning per cardiology. Subjective Date of service: 09/29/20 Principal diagnosis: NSTEMI Interval history: Patient seen and examined. Medical records and medication list reviewed. No acute event overnight noted by the RN. s/p PCI today. Patient is tolerating diet. Discussed plan of care at bedside with patient. Objective - Exam Narrative Exam: GENERAL: well-developed and well-nourished AAM lying on bed appeared to be in no discomfort. HEENT: Normocephalic. Atraumatic. No conjunctival congestion or icterus. Patient has moist mucous membranes. NECK: Supple. Trachea midline. CHEST/LUNGS: Clear to auscultated bilaterally, breathing nonlabored. No wheezes crackles or rhonchi. HEART/CARDIOVASCULAR: Regular in rate and rhythm. S1 and S2 positive. ABDOMEN: Abdomen is soft, nontender. Patient has normal bowel sounds. SKIN: There is no rash. Warm and dry. NEURO: No focal motor deficit. Follows command. MUSCULOSKELETAL: No joint effusion or tenderness. EXTRIMITY: No edema, no cyanosis or clubbing. Cardiac Cath Site PSYCH: Cooperative. - Constitutional Vitals: Vital Signs - 12hr 09/29/20 09/29/20 09/29/20 11:50 12:00 12:15 Temperature 98.5 F Pulse Rate 72 78 74 Respiratory 14 16 19 Rate Blood Pressure 116/80 120/80 126/87 O2 Sat by Pulse 93 92 93 Oximetry 09/29/20 09/29/20 09/29/20 12:29 12:45 13:00 Temperature Pulse Rate 79 85 82 Respiratory 15 16 30 H Rate Blood Pressure 134/83 128/76 127/59 O2 Sat by Pulse 93 95 94 Oximetry 09/29/20 09/29/20 09/29/20 13:30 14:00 14:15 Temperature Pulse Rate 79 81 76 Respiratory 19 19 18 Rate Blood Pressure 116/79 112/66 118/80 O2 Sat by Pulse 95 98 98 Oximetry 09/29/20 14:33 Temperature 98.3 F Pulse Rate 78 Respiratory 20 Rate Blood Pressure 126/81 O2 Sat by Pulse 95 Oximetry - Labs CBC & Chem 7: 09/29/20 04:08 09/30/20 04:16 Labs: Abnormal lab results 09/28/20 09/29/20 09/29/20 Range/Units 22:41 04:08 04:08 [place] % (Auto) 9.4 H (0.0-7.3) % Heparin Anti-Xa Level 0.18 L (0.3-0.7) U.I./ml Sodium 136 L (137-145) mmol/L Potassium 3.3 L (3.6-5.0) mmol/L POC Glucose (70-105) mg/dL 09/29/20 09/29/20 Range/Units 05:39 06:52 [place] % (Auto) (0.0-7.3) % Heparin Anti-Xa Level 0.19 L (0.3-0.7) U.I./ml Sodium (137-145) mmol/L Potassium (3.6-5.0) mmol/L POC Glucose 110 H (70-105) mg/dL HEART Score - HEART Score EKG: Non-specific Age: 45-65 Risk factors: 1-2 risk factors Troponin: Troponin T 0.272 ng/mL (0.00-0.029) H* D 09/27/20 16:18 Troponin: > 3x normal limit - Critical Actions Critical Actions: 4-6 pts:12-16.6% risk of adverse cardiac event. Should be admitted
--- NOTE | 2020-09-29 17:39 | Nuclear Medicine Report ---
APPROVED REPORT Exam: Nuclear Stress Test Indication: Chest pain Patient Location: [facility] Room #: ED-1 Ht: 6 ft 6 in Wt: 265 lbs BSA: 2.54 m2 HR: 71 bpmBP: 172/101 mmHgBMI: 30.62 Rhythm: SINUS RHYTHM ANTEROSEPTAL INFARCT T WAVE ABNORMALITY POSSIBLE LATERAL ISCHEMIA Medical History Medical History: HTN Stress Test Details Stress Test: Pharmacologic stress testing performed using 0.4 mg of regadenoson per 5 mL given IV over 10 seconds. Reason for pharmacologic stress test: HTN. HR Resting HR: 74 bpm Max HR Achieved: 107 bpm Max Heart Rate (APMHR): 170 bpm Target HR (85% APMHR): 144 bpm % of APMHR: 62 Recovery HR: 92 bpm BP Resting BP: 174/101 mmHg Max BP: 174/101 mmHg Recovery BP: 141/91 mmHg ECG Resting ECG: Sinus Rhythm,Deep T inversions in anterior leads along with Q waves in anterior leads suggestive of recent anteroseptal OK. Stress ECG: Sinus Rhythm ST Change: None Arrhythmia: None Recovery ECG: Sinus Rhythm Recovery ST Change: No significant change from abaseline. Clinical Reason for Termination: Completed protocol Stress Symptoms: Nausea Stress ECG Conclusion Baseline EKG showd evidence of recent anteroseptal OK with Q waves and deep T inversions in anterior leads. NM EXAM: Myocardial Perfusion REST/STRESS Imaging Protocol: Rest Tc-99m/Stress Tc-99m 1 day Resting Data Rest SPECT myocardial perfusion imaging was performed in supine position 45 minutes following the intravenous injection of 10 mCi of Tc-99m Myoview. Time of rest injection: 0915 Pharmacologic Stress Pharmacologic stress test was performed by injecting Regadenoson 0.4 mg IV push followed by the intravenous injection of 28 mCi of Tc-99m Myoview. Time of stress injection: 1034 Gated Stress SPECT was performed 30 minutes after stress injection. The images were gated to evaluate regional wall motion and calculate left ventricular ejection fraction. Study Data TID = 1.33. Perfusion Wall Motion There is a large area of akinesis in the apical segment of the anteroseptal wall which is seen on the stress images as well as the resting images.LVEF was calculated to be 32%. Nuclear Conclusion ECG Findings: negative for ischemia Clinical Findings: negative for ischemia Nuclear Findings: negative for ischemia Exercise Capacity: not assessed Left Ventricular Function: abnormal Risk Study: high Large area of perfusion defect noted in apical and mid/apical anteroseptal area in stress and resting images c/w with scar.Very mild reversibility noted.LVEF was 32% with apical and anteroseptal akinesis. No ischemia was seen on the images; however, transient ischemia dilatation could be consistent with some degree of balanced ischemia. Conclusion Baseline EKG showd evidence of recent anteroseptal OK with Q waves and deep T inversions in anterior leads.
[2020-09-29] MEDS: POTASSIUM CHLORIDE 10 MEQ 10 MEQ/100 ML BAG IV SCH ×2 (18:29→18:30)
[2020-09-29] MEDS ORDERED: MORPHINE 2 MG/1 ML INJ IV ONE (18:30)
--- NOTE | 2020-09-29 18:43 | Progress Note ---
Assessment and Plan Continue bASA, Plavix, statin, BB, and Imdur. Anticipate discharge in AM if stable and chest pain-free. Follow-up with Dr. Castillo in 1-2 weeks ([phone]). Pt seen in conjunction with Dr. Castillo, who agrees with the assessment and plan of care. - Patient Problems (1) Chest pain Current Visit: Yes Status: Acute (2) Non-STEMI (non-ST elevated myocardial infarction) Current Visit: Yes Status: Acute (3) Cocaine use Current Visit: Yes Status: Acute (4) Hypertensive emergency Current Visit: Yes Status: Resolved (5) Cardiomyopathy Current Visit: Yes Status: Acute (6) CAD (coronary artery disease) Current Visit: Yes Status: Acute Qualifiers: Coronary Disease-Associated Artery/Lesion type: [place] artery [place] vs. transplanted heart: [place] heart (7) Stented coronary artery Current Visit: Yes Status: Acute (8) HTN (hypertension) Current Visit: Yes Status: Chronic Qualifiers: Hypertension type: primary hypertension Qualified Code(s): I10 - Essential (primary) hypertension Subjective Date of service: 09/29/20 Principal diagnosis: NSTEMI Interval history: S/p SUSAN placement of mid LAD with catheter thrombectomy. Pt tolerated well. SR 60-70s on tele. Objective Last Vital Signs Temp 98.3 F 09/29/20 14:33 Pulse 78 09/29/20 14:33 Resp 20 09/29/20 14:33 BP 126/81 09/29/20 14:33 Pulse Ox 95 09/29/20 14:33 - Physical Examination General: No Apparent Distress HEENT: Positive: EOMI, Normocephaly Neck: Positive: neck supple, trachea midline. Negative: JVD/HJR Cardiac: Positive: Reg Rate and Rhythm, S1/S2 Lungs: Positive: clear to auscultation Neuro: Positive: Grossly Intact Abdomen: Positive: Soft. Negative: Tender Skin: Negative: Rash, Suspicious Lesions Incision: Cardiac Cath Site (R radial) Musculoskeletal: No Pain Extremities: Present: lower extr. pulses. Absent: edema - Labs and Meds Coagulation 09/29/20 Range/Units 04:08 PT 13.0 (12.2-14.9) Sec. INR 0.92 (0.87-1.13) CBC 09/29/20 Range/Units 04:08 WBC 8.3 (4.5-11.0) K/mm3 RBC 4.82 (3.65-5.03) M/mm3 Hgb 14.7 (11.8-15.2) gm/dl Hct 43.7 (35.5-45.6) % Plt Count 145 (140-440) K/mm3 Lymph # (Auto) 2.7 (1.2-5.4) K/mm3 [place] # (Auto) 0.8 (0.0-0.8) K/mm3 Eos # (Auto) 0.0 (0.0-0.4) K/mm3 Baso # (Auto) 0.1 (0.0-0.1) K/mm3 Comprehensive Metabolic Panel 09/29/20 Range/Units 04:08 Sodium 136 L (137-145) mmol/L Potassium 3.3 L (3.6-5.0) mmol/L Chloride 101.2 (98-107) mmol/L Carbon Dioxide 26 (22-30) mmol/L BUN 16 (9-20) mg/dL Creatinine 1.0 (0.8-1.3) mg/dL Glucose 94 (75-100) mg/dL Calcium 9.1 (8.4-10.2) mg/dL - Imaging and Cardiology EKG: report reviewed, image reviewed Echo: report reviewed (09/21/2020 - EF 40-45%, severe hypokinesis of septal wall & anterior wall, mild LVH, mild diastolic dysfxn) Cardiac cath: report reviewed (09/29/2020 - SUSAN placement of LAD with catheter thrombectomy) - Telemetry EKG Rhythm: Sinus Rhythm - EKG Sinus rhythms and dysrhythmias: sinus rhythm Repolarization changes or abnormalities: ST suggestive of injury
[2020-09-30] MEDS: carvediloL 6.25 MG TAB PO SCH ×2 (00:05→10:39)
[2020-09-30 07:06] LABS: BUN/Creatinine Ratio 17; Blood Urea Nitrogen 17 mg/dL (9-20); Calcium 8.2 mg/dL (8.4-10.2); Hemolysis Index 1
[2020-09-30] MEDS ORDERED: amLODIPine 5 MG TAB PO SCH (10:00)
[2020-09-30] MEDS: CLOPIDOGREL 75 MG TAB PO SCH (10:39)
[2020-09-30] MEDS: ASPIRIN 81 MG TAB CHEW PO SCH (10:39)
--- NOTE | 2020-09-30 11:36 | Progress Note ---
Assessment and Plan Continue bASA, Plavix, statin, and Coreg. Currently stable cardiac status. Pt may be discharged. Follow-up with Dr. Castillo in 1-2 weeks ([phone]). Pt seen in conjunction with Dr. Hernandez, who agrees with the assessment and plan of care. - Patient Problems (1) Chest pain Current Visit: Yes Status: Acute (2) Non-STEMI (non-ST elevated myocardial infarction) Current Visit: Yes Status: Acute (3) Cocaine use Current Visit: Yes Status: Acute (4) Hypertensive emergency Current Visit: Yes Status: Resolved (5) Cardiomyopathy Current Visit: Yes Status: Acute (6) CAD (coronary artery disease) Current Visit: Yes Status: Chronic Qualifiers: Coronary Disease-Associated Artery/Lesion type: [place] artery [place] vs. transplanted heart: [place] heart (7) Stented coronary artery Current Visit: Yes Status: Chronic (8) HTN (hypertension) Current Visit: Yes Status: Chronic Qualifiers: Hypertension type: primary hypertension Qualified Code(s): I10 - Essential (primary) hypertension Subjective Date of service: 09/30/20 Principal diagnosis: NSTEMI Interval history: Resting comfortably this AM. Denies chest pain or any additional cardiac complaints. SR 60-70s on tele. Objective Last Vital Signs Temp 97.9 F 09/30/20 03:26 Pulse 86 09/30/20 08:00 Resp 18 09/30/20 08:00 BP 129/77 09/30/20 08:00 Pulse Ox 98 09/30/20 08:00 - Physical Examination General: No Apparent Distress HEENT: Positive: EOMI, Normocephaly Neck: Positive: neck supple, trachea midline. Negative: JVD/HJR Cardiac: Positive: Reg Rate and Rhythm, S1/S2 Lungs: Positive: clear to auscultation Neuro: Positive: Grossly Intact Abdomen: Positive: Soft. Negative: Tender Skin: Negative: Rash, Suspicious Lesions Incision: Cardiac Cath Site (R radial site - clean/dry/intact, no evidence of bleeding or hematoma) Musculoskeletal: No Pain Extremities: Present: lower extr. pulses. Absent: edema - Labs and Meds Comprehensive Metabolic Panel 09/30/20 Range/Units 04:16 Sodium 137 (137-145) mmol/L Potassium 3.2 L (3.6-5.0) mmol/L Chloride 102.4 (98-107) mmol/L Carbon Dioxide 25 (22-30) mmol/L BUN 17 (9-20) mg/dL Creatinine 1.0 (0.8-1.3) mg/dL Glucose 87 (75-100) mg/dL Calcium 8.2 L (8.4-10.2) mg/dL - Imaging and Cardiology EKG: report reviewed, image reviewed Echo: report reviewed (09/21/2020 - EF 40-45%, severe hypokinesis of septal wall & anterior wall, mild LVH, mild diastolic dysfxn) Cardiac cath: report reviewed (09/29/2020 - SUSAN placement of LAD with catheter thrombectomy) - Telemetry EKG Rhythm: Sinus Rhythm - EKG Sinus rhythms and dysrhythmias: sinus rhythm Repolarization changes or abnormalities: ST suggestive of injury
[2020-09-30] MEDS ORDERED: POTASSIUM CHLORIDE ER 20 MEQ TAB PO SCH (12:00)
[2020-09-30 13:15] VITALS: BP 121/76
[2020-09-30] MEDS ORDERED: POTASSIUM CHLORIDE ER 20 MEQ TAB PO ONE (13:34)
--- NOTE | 2020-09-30 13:45 | Discharge Summary ---
Providers - Providers Date of Admission: 09/27/20 16:38 Date of discharge: 09/30/20 Attending physician: MOMO JAIME 09/27/20 14:36 Consult to Physician [CONS] Stat Comment: Consulting Provider: NIDIA MOLINA Physician Instructions: Reason For Exam: NON STEMI 09/29/20 12:03 Consult to Cardiac Rehabilitation [CONS] Routine Reason For Exam: Cardiac Rehab Evaluation Primary care physician: ICE MAKER Hospitalization Condition: Stable Hospital course: Patient is a 50 y/o male with pmhx of HTN who came to the ED for chest pain. Per patient night prior to that he was partying, drank alcohol, and did cocaine. Patient was found by EMSto have a BP of 222/131 which dropped to 193/123 after being given nitroglycerin. In the ED patient was found to have troponins 0.03- >0.1. Cardiology consulted for NSTEMI. Daily clinical course: 09/28/20: Patient noted to have anterior T wave inversions now noted on ECG. Continue heparin gtt. by cardiology plan for LHC in AM. NPO after midnight. Continue bASA, Plavix, and statin. Added Coreg and Imdur. Continue CCB. Continue to monitor clinically. 09/29/20: Status post left heart catheterization with PCI to mid LAD, continue to monitor. Discharge planning per cardiology. 09/30/20: Continue bASA, Plavix, statin, and Coreg. cardiology cleared for discharge patient will Follow-up with Dr. Molina in 1-2 weeks ([phone]). Disposition: 01 HOME / SELF CARE / HOMELESS Final Discharge Diagnosis (Prints w/discharge instructions): (1) Chest pain due to CAD. Current Visit: Yes Status: Acute. (2) Non-STEMI (non-ST elevated myocardial infarction). Current Visit: Yes Status: Acute. (3) Cocaine use. Current Visit: Yes Status: Acute. (4) Hypertensive emergency. Current Visit: Yes Status: Resolved. (5) Cardiomyopathy. Current Visit: Yes Status: Acute. (6) CAD (coronary artery disease). Current Visit: Yes Status: Chronic. Qualifiers: Coronary Disease-Associated Artery/Lesion type: [place] artery [place] vs. transplanted heart: [place] heart. (7) Stented coronary a rtery. Current Visit: Yes Status: Chronic. (8) HTN (hypertension). Current Visit: Yes Status: Chronic. Qualifiers: Hypertension type: primary hypertension Qualified Code(s): I10 - Essential (primary) hypertension. (9) hypokalemia Time spent for discharge: 34 minutes Core Measure Documentation - Palliative Care Palliative Care/ Comfort Measures: Not Applicable - Core Measures Any of the following diagnoses?: none Exam - Physical Exam Narrative exam: GENERAL: well-developed and well-nourished AAM lying on bed appeared to be in no discomfort. HEENT: Normocephalic. Atraumatic. No conjunctival congestion or icterus. Patient has moist mucous membranes. NECK: Supple. Trachea midline. CHEST/LUNGS: Clear to auscultated bilaterally, breathing nonlabored. No wheezes crackles or rhonchi. HEART/CARDIOVASCULAR: Regular in rate and rhythm. S1 and S2 positive. ABDOMEN: Abdomen is soft, nontender. Patient has normal bowel sounds. SKIN: There is no rash. Warm and dry. NEURO: No focal motor deficit. Follows command. MUSCULOSKELETAL: No joint effusion or tenderness. EXTRIMITY: No edema, no cyanosis or clubbing. Cardiac Cath Site (R radial site - clean/dry/intact, no evidence of bleeding or hematoma) PSYCH: Cooperative. - Constitutional Vitals: Temp Pulse Resp BP Pulse Ox 98.8 F 65 18 121/76 95 09/30/20 12:43 09/30/20 12:43 09/30/20 12:43 09/30/20 12:43 09/30/20 12:43 Plan Activity: advance as tolerated Weight Bearing Status: Non-Weight Bearing Diet: low fat, low salt Special Instructions: record daily BP diary Additional Instructions: please Follow-up with Dr. Molina in 1-2 weeks ([phone]). Follow up with: PRIMARY CAREMD [Primary Care Provider] - 3-5 Days NIDIA MOLINA MD [Staff Physician] - 7 Days Forms: CardCath PCI D/C Instructions, Discharge Signature Page Prescriptions: AtorvaSTATin [Lipitor] 40 mg PO QHS #30 tablet Aspirin [Aspirin BABY CHEW TAB] 81 mg PO DAILY #30 tab.chew carvediloL [Coreg] 12.5 mg PO BID #60 tablet Potassium Chloride [K-Dur] 20 meq PO QDAY #3 tablet Clopidogrel [Plavix] 75 mg PO QDAY #30 tablet
== END 2020-09-30 13:00 | disposition home or self-care (01) | DRG 247 ==
LOC: ED 08:45 → 4A 16:38
PROVIDERS: ADMIT Internal Medicine; ATTEND Internal Medicine
PROC: 4A023N7 Measurement of Cardiac Sampling and Pressure, Left Heart, Percutaneous Approach (ICD-10-PCS; principal; 2020-09-29)
PROC: 027034Z Dilation of Coronary Artery, One Artery with Drug-eluting Intraluminal Device, Percutaneous Approach (ICD-10-PCS; 2020-09-29)
PROC: 02C03ZZ Extirpation of Matter from Coronary Artery, One Artery, Percutaneous Approach (ICD-10-PCS; 2020-09-29)
PROC: B2111ZZ Fluoroscopy of Multiple Coronary Arteries using Low Osmolar Contrast (ICD-10-PCS; 2020-09-29)
PROC: B2151ZZ Fluoroscopy of Left Heart using Low Osmolar Contrast (ICD-10-PCS; 2020-09-29)
PROC: B240ZZ3 Ultrasonography of Single Coronary Artery, Intravascular (ICD-10-PCS; 2020-09-29)
DX: I21.4 Non-ST elevation (NSTEMI) myocardial infarction (principal); I16.1 Hypertensive emergency; E66.2 Morbid (severe) obesity with alveolar hypoventilation; I42.9 Cardiomyopathy, unspecified; I10 Essential (primary) hypertension; F12.90 Cannabis use, unspecified, uncomplicated; E87.6 Hypokalemia; I25.118 Atherosclerotic heart disease of native coronary artery with other forms of angina pectoris; F14.10 Cocaine abuse, uncomplicated; Z82.49 Family history of ischemic heart disease and other diseases of the circulatory system; Z83.3 Family history of diabetes mellitus; Z68.30 Body mass index [BMI] 30.0-30.9, adult
CPT/HCPCS: 36415; 71045; 71275; 74174; 78452; 80048; 80053; 80061; 80076; 80307; 81001; 82962; 83690; 84484; 85014; 85018; 85025; 85049; 85520; 85610; 85730; 92928; 92978; 93005; 93017; 93306; 93458; 93799; 99406; G0378; A9502; C1725; C1753; C1757; C1769; C1874; C1887; C1894; C9600; J0360; J1170; J1644; J2060; J2250; J2270; J2405; J2785; J3010; J7030; J7040; Q9967